=== PATIENT | male | born 1995 | race Caucasian/White ===

== ENCOUNTER 2017-09-16 19:59 | Emergency (ER) | payer MEDICAID, OTHER ==
[~2017-09-16] VITALS: Ht 177.8 cm; Wt 70.3 kg
[2017-09-16 20:23] VITALS: BP 127/85
[2017-09-17] MEDS ORDERED: ONDANSETRON HCL 4 MG/2 ML VIAL IM ONE (00:45)
[2017-09-17] MEDS ORDERED: HYDROmorphone HCL 2 MG/ML VL IM ONE (00:45)
[2017-09-17] MEDS ORDERED: MORPHINE SULFATE 4 MG/ML SYR/VIAL IM ONE (01:00)
== END 2017-09-17 01:28 | disposition home or self-care (01) ==
LOC: ER 19:59
DX: S52.302A Unspecified fracture of shaft of left radius, initial encounter for closed fracture (principal); W18.39XA Other fall on same level, initial encounter; Y93.89 Activity, other specified; Y92.89 Other specified places as the place of occurrence of the external cause; Y99.8 Other external cause status
CPT/HCPCS: 29125; 73090; 96372; 99284; J2270; J2405

== ENCOUNTER 2020-01-02 17:57 | Emergency (ER) | payer OTHER, MEDICAID ==
[~2020-01-02] VITALS: Ht 177.8 cm; Wt 72.6 kg
[2020-01-02] MEDS ORDERED: ONDANSETRON HCL 4 MG/2 ML VIAL IV ONE (19:15)
[2020-01-02] MEDS ORDERED: cefTRIAXone 1GM/50ML D5W 50 ML IV ONE (19:15)
[2020-01-02] MEDS ORDERED: TETANUS-DIPTH-ACEL PERTUSSIS 0.5ML SYR Tdap IM ONE (19:15)
[2020-01-02] MEDS ORDERED: SODIUM CHLORIDE 0.9% 1,000 ML IV ONE (19:15)
[2020-01-02] MEDS ORDERED: HYDROmorphone HCL 2 MG/ML VL IV ONE (19:15)
[2020-01-02 20:26] LABS: Basophils # (auto) 0.1 10 ^3/uL (0-0.2); Basophils % (auto) 0.5 % (0.0-2.0); Eosinophils # (auto) 0.1 10 ^3/uL (0-0.8); Eosinophils % (auto) 0.6 % (0.0-7.0); Hematocrit 43.3 % (41.0-53.0); Hemoglobin 14.7 g/dL (13.5-17.5); Lymphocytes # (auto) 3.3 10 ^3/uL (0.4-5.4); Lymphocytes % (auto) 22.5 % (10.0-50.0); Mean Corpuscular Hemoglobin 31.1 pg (28.0-32.0); Mean Corpuscular Hgb Conc. 33.9 g/dL (32.0-36.0); Mean Corpuscular Volume 91.9 fL (80.0-100.0); Monocytes # (auto) 0.7 10 ^3/uL (0-1.3); Monocytes % (auto) 4.8 % (0.0-12.0); Neutrophils # (auto) 10.7 10 ^3/uL (1.6-8.6); Neutrophils % (auto) 71.6 % (37.0-80.0); Nucleated Red Blood Cells % 0.1 %; Platelet Count (auto) 255 10^3/uL (140-450); Red Blood Cells 4.71 10^6/uL (4.5-5.90); Red Cell Distribution Width 12.9 % (11.8-14.3); White Blood Cell 14.9 10^3/uL (4.4-10.8)
[2020-01-02 20:43] LABS: Albumin 4.2 g/dL (3.4-5.0); BUN/Creatinine Ratio 9.2; Calcium 8.8 mg/dL (8.5-10.1); Potassium 3.2 mmol/L (3.5-5.1)
[2020-01-02 20:57] LABS: Bilirubin, Total 0.4 mg/dL (0.2-1.0); Total Protein 7.4 g/dL (6.4-8.2)
[2020-01-02] MEDS ORDERED: NEOMYCIN-BACITRACIN-POLYM 15GM TOP OINT TOP SCH (22:00)
[2020-01-02 22:22] VITALS: BP 112/66
== END 2020-01-02 22:30 | disposition home or self-care (01) ==
LOC: ER 17:57
DX: T20.20XA Burn of second degree of head, face, and neck, unspecified site, initial encounter (principal)
CPT/HCPCS: 36415; 71045; 80053; 85025; 90471; 90715; 96365; 96375; 99285; J0696; J1170; J2405